=== PATIENT | female | born 1945 | race Caucasian/White ===

== ENCOUNTER → 2017-03-30 | Outpatient (CLI) | payer MEDICARE ==
[~2017-03-30] MED LIST: ALBU8.5H2; CETI10CA PO; ESTR1PAT28 TD; GUAI100G2 PO; INSU100I23 SQ; LANTUS SOL100 UNIT/1 SQ; LISI20TA PO; MECL-105 PO; NF-FLON16G; [UNRECOGNIZED DRUG - CODE] TOP
--- NOTE | 2017-03-30 20:22 | Diagnostic Imaging Report ---
INDICATION: Carotid bruit. Carotid Doppler study performed in routine fashion with color flow Doppler waveform analysis. There is extensive plaquing visualized in carotid bifurcations on both sides. On the right side, the velocities and ratios are within normal range with ICA to CCA systolic velocity ratio of 1.65. There is elevated velocity in the external carotid of 167 cm per second. On the left side, the velocity is elevated in the proximal internal carotid 285 cm per second with ratio of 3.34. There is also elevated velocity in the external carotid of 249 cm per second. Both vertebrals are patent with antegrade flow. IMPRESSION: Extensive plaquing in the carotid bifurcation on both sides. There is elevated velocity and ratio in the left internal carotid suggesting a stenosis. The ratio suggests a stenosis of 250 at 70%, but the absolute velocity suggests a stenosis of over 70%. Consider further evaluation with CTA for better anatomic definition. On the right side, there is plaquing which is below 50% in diameter. Both vertebrals are patent. There is also stenosis of the external carotid on both sides. Dictated by: Dictated on workstation # [id number]
== END ==
LOC: RAD 13:39
PROVIDERS: ATTEND Family Medicine
DX: R09.89 Other specified symptoms and signs involving the circulatory and respiratory systems (principal)
CPT/HCPCS: 93880